=== PATIENT | female | born 2000 | race Two or more races ===

== ENCOUNTER 2024-04-26 20:31 | Emergency (ER) | payer OTHER, SELFPAY ==
[2024-04-26 20:49] VITALS: BP 109/78; PULSE 75; TEMP 36.9; O2SAT 98; BMI 31.0
[2024-04-26] MEDS: ORPHENADRINE 60 MG/ 2 ML VIAL IM (21:48)
[2024-04-26] MEDS: KETOROLAC TROMETHAMINE 30 MG/ML VIAL IM (21:49)
--- NOTE | 2024-04-27 01:24 | ED_ITS ---
HPI HPI - General Adult General Stated complaint: [facility] BACK PAIN Time Seen by Provider: 04/26/24 21:12 Source: patient Mode of arrival: walk-in History of Present Illness HPI narrative: The patient is an otherwise healthy 24-year-old female who presents to the emergency department with low thoracic back pain. The patient stated that she injured herself around 6 PM. She states that she was adjusting a resident in the detention when she experienced an extreme muscle spasm. She stated that she was trying to move the patient as suggested by her supervising nurse. She was instructed to place a gait belt around the resident and then grabbed the wrist. She states as she did that her back spasms. The pain is an 8 out of 10. She states that she tried to stretch it out but it is continued to get worse. She has no history of prior injury to the back. The patient states that she does not have any loss of bowel or bladder. There is no weakness or numbness in the legs. The patient can ambulate well. The patient did drive herself here. No medications were taken prior to the patient's arrival. Patient did bring her materials from work for completion. Related Data Previous Rx's ?Medication ?Instructions ?Recorded cyclobenzaprine 10 mg tablet 10 mg PO BID #10 tabs 04/26/24 ibuprofen 600 mg tablet 600 mg PO Q8H #20 tabs 04/26/24 Allergies Allergy/AdvReac Type Severity Reaction Status Date / Time No Known Drug Allergies Allergy Verified 04/26/24 20:56 Opioid HPI Opioid Management Most Recent Opioid Data: Last Pain Scale 9 04/26/24 21:49 04/26/24 Review of Systems ROS Status of ROS 10 or more systems reviewed and unremark able except as noted in history and below PFSH PFSH Social History Little interest or pleasure in doing things: not at all Feeling down, depressed, or hopeless: not at all Exam Narrative Exam Narrative: Prior to examining the patient, I have washed with hospital approved and provided [employer] Consultant and have also applied gloves.? Prior to touching the patient, I asked for consent to examine the patient.? General: Alert and oriented, well nourished, mild distress. Eye: PERRL, EOMI, normal conjunctiva. HENT: Normocephalic, normal hearing, moist oral mucosa, no scleral icterus Musculoskeletal: Normal range of motion and strength, tender to the right lower thoracic area and right paraspinal musculature. There is ropey musculature. Skin: Skin is warm, dry and pink, no rashes or lesions. Neurologic: Awake, alert, and oriented X3, CN II-XII intact. The patient has 2 out of 4 reflexes in the patella that are symmetrical bilaterally. Patient has 5 out of 5 muscle strength that is symmetrical for dorsiflexion, plantarflexion, extensor hallucis longus, hip flexors, quadriceps and hamstrings. Psychiatric: Cooperative, appropriate mood and affect.? Following the conclusion of the examination, I have washed my hands thoroughly after removing examination gloves. Constitutional Vital Signs, click to edit/add: Last Vital Signs Temp 98.4 F 04/26/24 20:49 Pulse 75 04/26/24 20:49 Resp 14 04/26/24 20:49 BP 109/78 04/26/24 20:49 Pulse Ox 98 04/26/24 20:49 O2 Del Method Room Air 04/26/24 20:49 Course Course Hospital Course: I evaluated the patient. I filled out her work documentation for her work- related injury. Patient did drive herself. Therefore I provided her Toradol 30 mg IM and orphenadrine 60 mg IM. 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 She will use ice and then heat for analgesic management. Vital Signs Vital signs: Vital Signs Temperature 98.4 F 04/26/24 20:49 Pulse Rate 75 04/26/24 20:49 Respiratory Rate 14 04/26/24 20:49 Blood Pressure 109/78 04/26/24 20:49 Pulse Oximetry 98 04/26/24 20:49 Oxygen Delivery Method Room Air 04/26/24 20:49 Temperature 98.4 F 04/26/24 20:49 Pulse Rate 75 04/26/24 20:49 Respiratory Rate 14 04/26/24 20:49 Blood Pressure 109/78 04/26/24 20:49 Pulse Oximetry 98 04/26/24 20:49 Oxygen Delivery Method Room Air 04/26/24 20:49 Medical Decision Making MDM Narrative Medical decision making narrative: In summary, the patient is a healthy 24-year-old female who had back pain after adjusting a patient. No x-rays indicated at this time because the patient does not have midline point tenderness. The patient did not sustain a compression fracture from pulling a patient. The patient definitely has evidence of a musculoskeletal issue. Patient would benefit from muscle relaxation, anti- inflammatories. May even benefit from lidocaine patch or Voltaren cream. Differential Diagnosis Differential Diagnosis: Musculoskeletal strain, compression fracture, radicular pain Medical Records Medical records reviewed: Yes I reviewed the patient's medical records Discharge Plan Discharge Clinical Impression: Back strain Patient Disposition: Home, Self-Care Time of Disposition Decision: 21:33 Condition: Good Mode of Transportation: Private Vehicle Prescriptions / Home Meds: New cyclobenzaprine 10 mg tablet 10 mg PO BID Qty: 10 0RF ibuprofen 600 mg tablet 600 mg PO Q8H Qty: 20 0RF Print Language: Czech Instructions: Muscle Strain (ED), Back Pain (ED) Additional Instructions: Please use some ice on your back for the first couple of days. You will want to use an ice pack for 20 minutes approximately 3-4 times per day. Then you will want to use heat to your back. Do gentle stretching. Increase your water while taking the medications for discomfort. Please do not lift anything at work heavier than a gallon of milk which is approximately 8 pounds. Please take your work restrictions and to work and have a discussion with your employer. The reason a x-ray was not done is because the mechanism did not support a fracture to that area of your back. And you are not referred for an emergent MRI because you are not having any neurologic deficits. Thank you for trusting me with your care today. Please follow-up with your primary medical physician for further evaluation and treatment if you have any loss of bowel or bladder, numbness or weakness in your legs you must return to an emergency department soon as possible for further evaluation and treatment. Referrals: Physician,Non-Staff, [Primary Care Provider] - 1 week Discharge Date/Time: 04/26/24 21:56
== END 2024-04-26 21:56 | disposition home or self-care (01) ==
PROVIDERS: Emergency Provider Emergency Medicine
DX: S29.012A Strain of muscle and tendon of back wall of thorax, initial encounter (principal); X50.9XXA Other and unspecified overexertion or strenuous movements or postures, initial encounter
CPT/HCPCS: 96372; 99284; J1885; J2360